=== PATIENT | male | born 1990 | race Caucasian/White ===

== ENCOUNTER 2021-05-26 13:52 | Emergency (ER) | payer BC, MEDICAID, OTHER ==
[2021-05-26 14:03] VITALS: BP 120/79; PULSE 63
--- NOTE | 2021-05-26 14:31 | EDM.PDOCBH ---
ED HPI GENERAL MEDICAL PROBLEM - General Chief Complaint: Behavioral/Psych Stated Complaint: ANXIETY/DEPRESSION Time Seen by Provider: 05/26/21 13:59 Source of Information: Reports: Patient, RN Notes Reviewed History Limitations: Reports: No Limitations - History of Present Illness INITIAL COMMENTS - FREE TEXT/NARRATIVE: Patient is a 31-year-old male presenting to the emergency department with complaints of anxiety. He describes feeling anxious most of the time as well as tightness in his chest and decreased appetite. He has a history of methamphetamine abuse with his last use being 2 days ago. He moved here from [place] to live with friends because he was in a volatile situation and he could not get the resources to help with treatment that he needed. He reports that he is now in a good situation. He went and saw [facility] today and has an appointment scheduled on the with Dr. Boggs, psychiatry. He had been using methamphetamine for approximately last 2 months. Prior to that he had an extended period of sobriety. He reports that he would occasionally use "fentanyl 30s"to offset the effects of the meth, however estimates that he is only used about 5 times in the last few months. He is trying to quit all illicit drugs. Denies any suicidal or homicidal ideation. - Related Data Allergies Allergy/AdvReac Type Severity Reaction Status Date / Time No Known Allergies Allergy Verified 05/26/21 14:04 Home Meds: Home Meds busPIRone [Buspar] 10 mg PO BID #28 tab 05/26/21 [Rx] Past Medical History Cardiovascular History: Reports: None Neurological History: Reports: Concussion Psychiatric History: Reports: Addiction, Depression - Infectious Disease History Infectious Disease History: Reports: Chicken Pox - Past Surgical History HEENT Surgical History: Reports: Adenoidectomy, Oral Surgery, Tonsillectomy Musculoskeletal Surgical History: Reports: Other (See Below) Other Musculoskeletal Surgeries/Procedures:: C-4 Fracture - HALO x8 months 2009. Clavical and Right Shoulder Fractures Social & Family History - Family History Family Medical History: No Pertinent Family History - Tobacco Use Tobacco Use Status *Q: Current Every Day Tobacco User Years of Tobacco use: 14 Packs/Tins Daily: 1 - Caffeine Use Caffeine Use: Reports: Soda - Recreational Drug Use Recreational Drug Use: Yes Drug Use in Last 12 Months: Yes Recreational Drug Type: Reports: Marijuana/Hashish, Methamphetamine Recreational Drug Use Frequency: Binges Recreational Drug Last Use: 05/24/2021 ED ROS GENERAL - Review of Systems Review Of Systems: Comprehensive ROS is negative, except as noted in HPI. ED EXAM, BEHAVIORAL HEALTH - Physical Exam Exam: See Below Exam Limited By: No Limitations General Appearance: Alert, WD/WN, No Apparent Distress Respiratory/Chest: No Respiratory Distress, Lungs Clear, Normal Breath Sounds, No Accessory Muscle Use, Chest Non-Tender Cardiovascular: Normal Peripheral Pulses, Regular Rate, Rhythm, No Edema, No Gallop, No JVD, No Murmur, No Rub GI/Abdominal: Normal Bowel Sounds, Soft, Non-Tender, No Organomegaly, No Distention, No Abnormal Bruit, No Mass Neurological: Alert, Normal Mood/Affect, CN II-XII Intact, Normal Cognition, Normal Gait, Normal Reflexes, No Motor/Sensory Deficits, Oriented x 3 Psychiatric: Alert, Normal Affect, Normal Cognition, Normal Mood, Oriented Skin Exam: Warm, Dry, Intact, Normal color, No rash COURSE, BEHAVIORAL HEALTH COMP - Course Vital Signs: Last Vital Signs Temp 98.1 F 05/26/21 13:58 Pulse 63 05/26/21 13:58 Resp 16 05/26/21 13:58 BP 120/79 05/26/21 13:58 Pulse Ox 100 05/26/21 13:58 Discharge vs Psych Eval/Treatment:: Patient is a 31-year-old male presenting to the emergency department with com plaints of anxiety. He is trying to quit using methamphetamines and opiates and has gone to [facility] and set up an appointment with psychiatrist, Dr. Boggs. He is looking for something to help with his anxiety until he can be seen by her. Options of treatment discussed with patient. I do not feel that benzodiazepines are the best choice for him at this time as it has the potential for abuse and addiction. Patient is in agreement with this. 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 We will start him on buspirone 10 mg twice daily. Discussed with him that this is not working he may return and that we can discuss alternative treatment as opposed to going back to methamphetamine and opiates. He is in agreement with this plan. Discharge instructions as documented. Departure - Departure Time of Disposition: 14:28 Disposition: Home, Self-Care 01 Condition: Good Clinical Impression: Anxiety - Discharge Information *PRESCRIPTION DRUG MONITORING PROGRAM REVIEWED*: No *COPY OF PRESCRIPTION DRUG MONITORING REPORT IN PATIENT JOVANY: No Prescriptions: busPIRone [Buspar] 10 mg PO BID #28 tab Instructions: Managing Anxiety, Adult Referrals: PCP,Not In Area [Primary Care Provider] - Forms: ED Department Discharge Additional Instructions: You were seen in the emergency department today for evaluation with regards to your anxiety. Prescription for buspirone has been sent to [facility]. Take this medication as prescribed. Keep your appointment with Dr. Boggs as scheduled. If you feel that your symptoms are worsening, please not hesitate to return to the emergency department for reevaluation. Sepsis Event Note (ED) - Evaluation Sepsis Screening Result: No Definite Risk
== END 2021-05-26 14:50 | disposition home or self-care (01) ==
LOC: JD.ED 13:52
DX: F41.9 Anxiety disorder, unspecified (principal); Z72.0 Tobacco use
CPT/HCPCS: 99283